=== PATIENT | male | born 1955 | race Caucasian/White ===

== ENCOUNTER 2018-08-14 00:44 | Inpatient (IN) ==
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
[2018-08-14] MEDS ORDERED: Post-op Orders (for Pharmacy) OTHER ONE (03:31)
[2018-08-14] MEDS ORDERED: Naloxone Inj 0.4 MG/ML Vial IV.PUSH PRN (03:31)
[2018-08-14] MEDS ORDERED: Morphine Inj 4 MG/ML Vial IV.PUSH PRN (03:31)
[2018-08-14] MEDS ORDERED: Sodium Chloride 0.9% 2 ML Flush PRN IV.FLUSH (04:09)
[2018-08-14] MEDS: Sod Chloride 0.9% Inj 1,000 ML IV.CONT SCH (05:18)
[2018-08-14] MEDS ORDERED: Dextrose 50% in Water 50 ML Vial IV.PUSH PRN (05:38)
[2018-08-14] MEDS ORDERED: Influenza (Quadrivalent) Vaccine 0.5 ML Syringe IM ONE (08:00)
[2018-08-14] MEDS ORDERED: Gabapentin 400 MG Capsule PO SCH (09:00)
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
[2018-08-14] MEDS: Famotidine 20 MG Tablet PO SCH ×2 (11:01→20:32)
[2018-08-14] MEDS: Metoclopramide 10 MG Tablet PO SCH ×3 (11:01→19:21)
[2018-08-14] MEDS: Lidocaine 5% Patch T-DERMAL SCH (11:01)
[2018-08-14] MEDS: Gemfibrozil 600 MG Tablet PO SCH ×2 (11:02→22:13)
[2018-08-14] MEDS: Lisinopril 20 MG Tablet PO SCH (11:03)
[2018-08-14] MEDS: Sodium Chloride 0.9% 2 ML Flush BID IV.FLUSH SCH ×2 (11:17→22:16)
[2018-08-14] MEDS: glipiZIDE 5 MG Tablet PO SCH ×2 (11:17→20:16)
[2018-08-14] MEDS: oxyCODONE/Acetaminophen 10/325 Tablet PO PRN ×2 (11:26→17:49)
[2018-08-14] MEDS: Insulin NovoLIN Regular Correctional Sugar Inj SQ SCH ×4 (11:39→20:32)
[2018-08-14 13:01] LABS: Baso % (Auto) 0.4 % (0.0-2.0); Eos % (Auto) 0.4 % (0.0-4.0); Hematocrit 37.3 % (39.0-51.0); Hemoglobin 12.4 gm/dL (13.0-17.0); Lymph # (Auto) 1.1 th/mm3 (1.0-4.8); Lymph % (Auto) 12.8 % (9.0-44.0); Mean Corpuscular HGB Conc 33.3 % (32.0-36.0); Mean Corpuscular Volume 92.9 fL (80.0-100.0); Mono # (Auto) 0.4 th/mm3 (0.0-0.9); Mono % (Auto) 5.2 % (0.0-8.0); Neut # (Auto) 6.9 th/mm3 (1.8-7.7); Neut % (Auto) 81.2 % (16.0-70.0); Platelet Count 187 th/mm3 (150-450); Red Blood Count 4.02 mil/mm3 (4.50-5.90); Red Cell Distribution Width 15.2 % (11.6-17.2); White Blood Count 8.5 th/mm3 (4.0-11.0)
[2018-08-14 13:22] LABS: Calcium 8.3 mg/dL (8.5-10.1); Carbon Dioxide 24.6 meq/L (21.0-32.0)
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
[2018-08-14] MEDS: Gabapentin 400 MG Capsule PO SCH (17:52)
--- NOTE | 2018-08-14 22:30 | ECG ---
Date Performed: 08/14/2018 Time Performed: 10:28:19 PTAGE: 63 years EKG: Sinus rhythm POSSIBLE INFERIOR MYOCARDIAL INFARCTION , PROBABLY OLD BORDERLINE ECG NO PREVIOUS TRACING DOCTOR: Madi White Interpretating Date/Time 08/14/2018 22:28:53
[2018-08-15] MEDS: Sod Chloride 0.9% Inj 1,000 ML IV.CONT SCH ×2 (00:17→13:50)
[2018-08-15] MEDS: oxyCODONE/Acetaminophen 10/325 Tablet PO PRN ×3 (04:52→22:49)
[2018-08-15 07:14] LABS: Baso % (Auto) 0.5 % (0.0-2.0); Eos # (Auto) 0.1 th/mm3 (0.0-0.4); Eos % (Auto) 1.7 % (0.0-4.0); Hemoglobin 12.4 gm/dL (13.0-17.0); Lymph % (Auto) 16.1 % (9.0-44.0); Mean Corpuscular HGB Conc 33.5 % (32.0-36.0); Mean Corpuscular Volume 92.7 fL (80.0-100.0); Mean Platelet Volume 7.9 fL (7.0-11.0); Mono # (Auto) 0.4 th/mm3 (0.0-0.9); Mono % (Auto) 6.9 % (0.0-8.0); Neut # (Auto) 4.5 th/mm3 (1.8-7.7); Neut % (Auto) 74.8 % (16.0-70.0); Platelet Count 168 th/mm3 (150-450); Red Blood Count 3.99 mil/mm3 (4.50-5.90); Red Cell Distribution Width 14.9 % (11.6-17.2)
[2018-08-15 07:42] LABS: Calcium 8.3 mg/dL (8.5-10.1); Carbon Dioxide 27.2 meq/L (21.0-32.0); Potassium 4.3 meq/L (3.5-5.1)
[2018-08-15] MEDS: Insulin NovoLIN Regular Correctional Sugar Inj SQ SCH ×4 (09:23→22:51)
[2018-08-15] MEDS: Lisinopril 20 MG Tablet PO SCH (09:24)
[2018-08-15] MEDS: Famotidine 20 MG Tablet PO SCH ×2 (09:25→22:50)
[2018-08-15] MEDS: Metoclopramide 10 MG Tablet PO SCH ×3 (09:25→17:12)
[2018-08-15] MEDS: Lidocaine 5% Patch T-DERMAL SCH (09:26)
[2018-08-15] MEDS: Gabapentin 400 MG Capsule PO SCH ×3 (09:26→17:12)
[2018-08-15] MEDS: glipiZIDE 5 MG Tablet PO SCH ×2 (09:26→22:51)
[2018-08-15] MEDS: Gemfibrozil 600 MG Tablet PO SCH ×2 (09:26→22:50)
[2018-08-15] MEDS: Sodium Chloride 0.9% 2 ML Flush BID IV.FLUSH SCH ×2 (09:26→22:51)
--- NOTE | 2018-08-15 11:36 | XR ---
EXAM DATE: 08/15/2018 11:04 AM EST AGE/SEX: 63 years / Male INDICATIONS: Cervical neck pain CLINICAL DATA: This is the patient's initial encounter. Patient reports that signs and symptoms have been present for 2 days and indicates a pain score of 2/10. MEDICAL/SURGICAL HISTORY: None. None. COMPARISON: No prior exams available for comparison. FINDINGS: Limited range of motion during flexion and extension are noted. Vertebral body alignment remains stable. There is no evidence of listhesis or instability. Moderate degenerative disc disease is again noted at C5-6 and C6-7. There is disc space narrowing wit h marginal spondylosis. CONCLUSION: Limited range of motion. No evidence of instability. Electronically signed by: Delfino Barr MD 08/15/2018 11:35 AM EST
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
[2018-08-15] MEDS: Senna/Docusate Sodium 8.6/50 MG Tablet PO SCH (22:49)
--- NOTE | 2018-08-16 07:43 | P.DCO ---
- Physical Therapy Order: Evaluate and treat, Improve ambulation, Strength and gait training - Occupational Therapy Order: Evaluate and treat, Improve ADL, Gross motor coordination - Home Health Nursing Order: Medical education, Signs/symptoms of disease process, Medication education-adverse effect, Nursing assessment with vital signs - Case Management Consult Yes - Certification I have seen patient Rad Larsen on 08/16/18. My clinical findings support the need for the requested home health care services because: Limited mobility due to disease progression, Patient has SOB, Deconditioned with increased weakness, Medication compliance is questionable, Limited ability to care for self, High risk of falls I certify that my clinical findings support that this patient is homebound because: Unsteady gait/balance, Unsafe to leave home unassisted, Non-ambulatory: confined to bed or chair, Unable to use public transportation
[2018-08-16] MEDS: Sod Chloride 0.9% Inj 1,000 ML IV.CONT SCH (08:06)
[2018-08-16] MEDS: Sodium Chloride 0.9% 2 ML Flush BID IV.FLUSH SCH ×2 (08:35→23:15)
[2018-08-16] MEDS: Senna/Docusate Sodium 8.6/50 MG Tablet PO SCH ×2 (08:35→23:12)
[2018-08-16] MEDS: Gabapentin 400 MG Capsule PO SCH ×3 (08:35→19:11)
[2018-08-16] MEDS: Lisinopril 20 MG Tablet PO SCH (08:35)
[2018-08-16] MEDS: glipiZIDE 5 MG Tablet PO SCH ×2 (08:36→23:12)
[2018-08-16] MEDS: Gemfibrozil 600 MG Tablet PO SCH ×2 (08:37→23:11)
[2018-08-16] MEDS: Famotidine 20 MG Tablet PO SCH ×2 (08:39→23:12)
[2018-08-16] MEDS: oxyCODONE/Acetaminophen 10/325 Tablet PO PRN ×3 (08:39→23:12)
[2018-08-16] MEDS: Metoclopramide 10 MG Tablet PO SCH ×3 (08:39→19:09)
[2018-08-16] MEDS: Lidocaine 5% Patch T-DERMAL SCH (08:40)
[2018-08-16] MEDS: Insulin NovoLIN Regular Correctional Sugar Inj SQ SCH ×4 (10:16→23:13)
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
--- NOTE | 2018-08-16 18:14 | MR ---
EXAM DATE: 08/16/2018 6:00 PM EST AGE/SEX: 63 years / Male INDICATIONS: . Neck pian radiating down left arm post trauma. CLINICAL DATA: This is the patient's subsequent encounter. Patient reports that signs and symptoms h ave been present for 3 days and indicates a pain score of 3/10. MEDICAL/SURGICAL HISTORY: Diabetes mellitus type II. Hypertension. [place] CABG. cardiac stents COMPARISON: [facility] [place], CT CERVICAL SPINE W/O CONTRAST, 08/14/2018. . TECHNIQUE: Multiplanar, multisequence MRI examination of the cervical spine was performed without co ntrast. FINDINGS: Cervical spine alignment is normal. Vertebral bodies have normal height. The known fractures of poste rior elements of C6 and the left lateral mass of C7 on not well demonstrated by MRI and appear to rem ain nondisplaced. No ligament rupture seen. Mild prevertebral fluid from C3 to C7; this measures appr oximately 3 mm in maximal thickness. No epidural hematoma or other fluid collections in the spinal ca nal. C2-C3: The disc is desiccated but otherwise normal. Very mild bilateral uncovertebral and facet oste oarthritis. No foraminal or spinal stenosis. C3-C4: The disc is desiccated but otherwise normal. Mild bilateral uncovertebral and facet osteoarth ritis. No foraminal or spinal stenosis. C4-C5: The disc is desiccated. No significant loss of height. Small posterior disc osteophyte comple x and mild bilateral uncovertebral and facet osteoarthritis. There is mild spinal stenosis without co rd ratio signal abnormality. There is mild bilateral foraminal stenosis. C5-C6: The disc is desiccated and has moderate loss of height. Moderate-sized, broad but mostly righ t paracentral disc osteophyte complex is present and there is mild to moderate bilateral uncovertebra l and facet osteoarthritis. There is moderate to severe spinal stenosis and short segment cord compre ssion. Just below the the disc osteophyte complex is focal increased T2 signal within the cord. There is moderate bilateral foraminal stenosis. C6-C7: The disc is desiccated and has moderate loss of height. Small to moderate, broad posterior di sc osteophyte complex present and there is moderate bilateral uncovertebral and facet osteoarthritis. There is [id number] spinal stenosis without cord compression or cord signal abnormality. There is moderate to severe bilateral foraminal stenosis. C7-T1: The disc is desiccated but otherwise within normal limits. Mild bilateral facet osteoarthriti s. No foraminal or spinal stenosis. CONCLUSION: 1. Nondisplaced fractures involving the posterior elements of C6 and the left lateral mass of C7. No subluxation. No ligamentous disruption demonstrated. There is no fracture-associated or spinal steno sis seen. 2. Focal cord signal abnormality at C6. This may be acute or contusion but chronic myelomalacia rela lidya to the spinal stenosis and cord compression at C5/C6 would be more likely. 3. Moderate to severe spinal stenosis with short segment cord compression and moderate bilateral for aminal stenosis at C5/C6. 4. Mild to moderate spinal stenosis without cord compression and moderate to severe bilateral forami nal stenosis at C6/C7. Electronically signed by: Xander Otoole MD 08/16/2018 6:13 PM EST
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
[2018-08-17] MEDS: oxyCODONE/Acetaminophen 10/325 Tablet PO PRN ×3 (05:45→23:07)
[2018-08-17] MEDS: Sod Chloride 0.9% Inj 1,000 ML IV.CONT SCH ×2 (08:38→17:33)
[2018-08-17] MEDS: Insulin NovoLIN Regular Correctional Sugar Inj SQ SCH ×4 (09:22→22:50)
[2018-08-17] MEDS: Gabapentin 400 MG Capsule PO SCH ×3 (09:23→17:35)
[2018-08-17] MEDS: Senna/Docusate Sodium 8.6/50 MG Tablet PO SCH ×2 (09:23→23:07)
[2018-08-17] MEDS: Gemfibrozil 600 MG Tablet PO SCH (09:23)
[2018-08-17] MEDS: glipiZIDE 5 MG Tablet PO SCH ×2 (09:24→23:08)
[2018-08-17] MEDS: Famotidine 20 MG Tablet PO SCH ×2 (09:24→23:08)
[2018-08-17] MEDS: Lisinopril 20 MG Tablet PO SCH (09:24)
[2018-08-17] MEDS: Metoclopramide 10 MG Tablet PO SCH ×3 (09:24→17:35)
[2018-08-17] MEDS: Sodium Chloride 0.9% 2 ML Flush BID IV.FLUSH SCH ×2 (09:27→23:08)
[2018-08-17] MEDS: Lidocaine 5% Patch T-DERMAL SCH (09:27)
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
[2018-08-18] MEDS: Gemfibrozil 600 MG Tablet PO SCH ×2 (07:50→09:29)
[2018-08-18] MEDS: Gabapentin 400 MG Capsule PO SCH ×2 (09:28→12:35)
[2018-08-18] MEDS: Senna/Docusate Sodium 8.6/50 MG Tablet PO SCH (09:28)
[2018-08-18] MEDS: Lisinopril 20 MG Tablet PO SCH (09:29)
[2018-08-18] MEDS: Famotidine 20 MG Tablet PO SCH (09:29)
[2018-08-18] MEDS: glipiZIDE 5 MG Tablet PO SCH (09:29)
[2018-08-18] MEDS: Lidocaine 5% Patch T-DERMAL SCH (09:30)
[2018-08-18] MEDS: Sodium Chloride 0.9% 2 ML Flush BID IV.FLUSH SCH (09:30)
[2018-08-18] MEDS: Metoclopramide 10 MG Tablet PO SCH ×2 (09:30→12:35)
[2018-08-18] MEDS: oxyCODONE/Acetaminophen 10/325 Tablet PO PRN (09:38)
[2018-08-18] MEDS: Sod Chloride 0.9% Inj 1,000 ML IV.CONT SCH (10:06)
[2018-08-18] MEDS: Insulin NovoLIN Regular Correctional Sugar Inj SQ SCH ×2 (10:07→12:37)
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
[2018-08-18 13:48] VITALS: BP 151/85; PULSE 76; RESP 22; TEMP 97.1; O2SAT 96
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
[2018-08-19] MEDS ORDERED: Thrombin Topical Soln 5,000 UNIT Vial TOPICAL ONE (07:37)
[2018-08-19] MEDS ORDERED: ceFAZolin 2 GM Premix Inj 0 GM/0 ML PIGGYBACK IV.SIG ONE (07:37)
[2018-08-19] MEDS ORDERED: Gelatin Size 100 Topical Foam ONE (07:37)
== END 2018-08-18 15:06 | disposition home health service (06) ==
LOC: NEPE 00:44 → NEDA 01:56 → N06 04:29
PROVIDERS: ADMIT Surgery; ATTEND Surgery

== ENCOUNTER 2018-09-02 09:54 | Observation (INO) ==
[~2018-09-02 09:54] MED LIST: Artificial Tears Opth Oint 3.5 GM Tube ONE; Gelatin Size 100 Topical Foam ONE; Thrombin Topical Soln 5,000 UNIT Vial TOPICAL ONE; ceFAZolin 1 GM Premix Inj 2 GM/100 ML FROZ.PIGGY IV.SIG ONE
[2018-09-02] MEDS ORDERED: Metoprolol Tartrate 25 MG Tablet PO ONE (10:29)
[2018-09-02] MEDS ORDERED: Chlorhexidine Gluconate 2% 1 Pack (2 Cloths) TOPICAL ONE (10:29)
[2018-09-02] MEDS ORDERED: Sod Chloride 0.9% Inj 1,000 ML IV.SIG SCH (11:00)
[2018-09-02] MEDS ORDERED: Sodium Chlor 0.9% Inj 500 ML IV.SIG SCH (11:00)
[2018-09-02] MEDS ORDERED: Vancomycin Inj 1,000 MG in Sodium Chlor 0.9% Inj 250 ML IV.SIG SCH (11:00)
--- NOTE | 2018-09-02 11:03 | XR ---
EXAM DATE: 09/02/2018 10:48 AM EST AGE/SEX: 63 years / Male INDICATIONS: Pre op cervical spine surgery. CLINICAL DATA: This is the patient's initial encounter. Patient reports that signs and symptoms have been present for 1 day and indicates a pain score of 0/10. MEDICAL/SURGICAL HISTORY: . heart attack . cabg. Coronary artery stent COMPARISON: . FINDINGS: A single AP view of the chest demonstrates the lungs to be symmetrically aerated without evidence of mass, infiltrate or effusion. The cardiomediastinal contours are unremarkable. Osseous structures a re intact. Sternotomy wires. CONCLUSION: No acute cardiopulmonary disease Electronically signed by: Xander Vidales MD 09/02/2018 11:01 AM EST
[2018-09-02] MEDS ORDERED: Insulin NovoLIN Regular Correctional Sugar Inj SQ ONE (11:09)
[2018-09-02 11:29] LABS: Activated Partial Thrombo Time 23.7 sec (23.4-31.7); INR 1.1 Ratio
[2018-09-02 11:39] LABS: Alanine Aminotransferase 24 U/L (12-78); Albumin 3.9 g/dL (3.4-5.0); Anion Gap 7 meq/L (5-15); Aspartate Aminotransferase 13 U/L (15-37); Blood Urea Nitrogen 28 mg/dL (7-18); Calcium 8.9 mg/dL (8.5-10.1); Carbon Dioxide 26.6 meq/L (21.0-32.0); Chloride 104 meq/L (98-107); Glomerular Filtration Rate 64 mL/min (>89); Glucose,Random 210 mg/dL (74-106); Potassium 4.1 meq/L (3.5-5.1); Sodium 138 meq/L (136-145)
[2018-09-02 11:42] LABS: Alkaline Phosphatase 86 U/L (45-117); Total Protein 7.7 g/dL (6.4-8.2)
[2018-09-02 11:52] LABS: Bilirubin,Urine Negative (Negative); Clarity,Urine Turbid (Clear); Color,Urine Yellow (Yellw/Straw); Glucose,Urine (UA) 150 mg/dL (Negative); Leukocyte Esterase,Urine Negative (Negative); Nitrite,Urine Negative (Negative); Specific Gravity,Urine 1.029 (1.002-1.035)
[2018-09-02] MEDS ORDERED: Morphine Sulfate Inj 2 MG/ML Vial IV.PUSH PRN (13:10)
[2018-09-02] MEDS ORDERED: Menthol 5.8 MG Lozenge BUCCAL PRN (13:10)
[2018-09-02] MEDS ORDERED: Bisacodyl 10 MG Supp RECTAL PRN (13:10)
[2018-09-02] MEDS ORDERED: oxyCODONE/Acetaminophen 10/325 Tablet PO PRN (13:13)
[2018-09-02] MEDS ORDERED: Gabapentin 400 MG Capsule PO PRN (13:13)
[2018-09-02] MEDS ORDERED: Dextrose 50% in Water 50 ML Vial IV.PUSH PRN (13:14)
[2018-09-02] MEDS ORDERED: fentaNYL Citrate Inj 250 MCG/5 ML Ampul ONE (13:19)
[2018-09-02] MEDS ORDERED: Artificial Tears Opth Oint 3.5 GM Tube ONE (13:19)
[2018-09-02] MEDS ORDERED: ceFAZolin 2 GM Premix Inj 2 GM/50 ML PIGGYBACK IV.SIG SCH (14:00)
[2018-09-02] MEDS ORDERED: Propofol Inj 500 MG/50 ML Vial ONE (15:05)
[2018-09-02] MEDS ORDERED: Sugammadex Inj 200 MG/2 ML Vial IV.PUSH ONE (16:24)
[2018-09-02] MEDS ORDERED: fentaNYL Citrate Inj 100 MCG/2 ML Ampul ONE (16:41)
[2018-09-02] MEDS ORDERED: HYDROmorphone PF Inj 2 MG/ML Vial ONE (16:41)
[2018-09-02] MEDS ORDERED: *morphine SULFATE 4 MG/ML PERIprocedure ONLY ONE ×2 (16:51→17:07)
--- NOTE | 2018-09-02 17:02 | XR ---
EXAM DATE: 09/02/2018 4:56 PM EST AGE/SEX: 63 years / Male INDICATIONS: Fusion C5 to C7 with screws and plate placement. CLINICAL DATA: This is the patient's initial encounter. Patient reports that signs and symptoms have been present for 1 day and indicates a pain score of Nonresponsive. MEDICAL/SURGICAL HISTORY: None. None. COMPARISON: [facility] [place], MR CERVICAL SPINE W/O CONTRAST, 08/16/2018. . FINDINGS: Postsurgical changes are identified in the lower cervical spine. Patient has undergone anterior fusio n from C5 through C7. There is an anterior fusion plate with fixation screws. Vertebral body cages ar e identified in C5-6 and C6-7 disc spaces. Alignment is well-maintained. CONCLUSION: Satisfactory postoperative appearance of the cervical spine following anterior cervical fusion from C 5 through C7. Electronically signed by: Delfino Barr MD 09/02/2018 5:01 PM EST
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
[2018-09-02] MEDS: Insulin NovoLOG Aspart Correctional Sugar Inj SQ SCH (18:36)
[2018-09-02] MEDS: Senna/Docusate Sodium 8.6/50 MG Tablet PO SCH (20:43)
[2018-09-02] MEDS ORDERED: INSULIN GLARGINE SQ SCH (21:00)
[2018-09-02] MEDS ORDERED: Insulin Detemir Inj 1,000 UNIT/10 ML Vial SQ SCH (21:00)
[2018-09-03] MEDS: Insulin NovoLOG Aspart Correctional Sugar Inj SQ SCH ×4 (01:33→12:13)
[2018-09-03] MEDS: ceFAZolin 2 GM Premix Inj 2 GM/50 ML PIGGYBACK IV.SIG SCH ×2 (02:06→10:18)
[2018-09-03] MEDS ORDERED: Levothyroxine 75 MCG Tablet PO SCH (06:00)
[2018-09-03 06:08] LABS: Baso % (Auto) 0.2 % (0.0-2.0); Hematocrit 35.6 % (39.0-51.0); Hemoglobin 12.1 gm/dL (13.0-17.0); Lymph # (Auto) 0.6 th/mm3 (1.0-4.8); Lymph % (Auto) 6.5 % (9.0-44.0); Mean Corpuscular Hemoglobin 31.3 pg (27.0-34.0); Mean Corpuscular Volume 91.9 fL (80.0-100.0); Mean Platelet Volume 7.7 fL (7.0-11.0); Mono # (Auto) 0.1 th/mm3 (0.0-0.9); Mono % (Auto) 1.6 % (0.0-8.0); Neut # (Auto) 8.1 th/mm3 (1.8-7.7); Neut % (Auto) 91.7 % (16.0-70.0); Platelet Count 215 th/mm3 (150-450); Red Blood Count 3.87 mil/mm3 (4.50-5.90); Red Cell Distribution Width 14.5 % (11.6-17.2); White Blood Count 8.9 th/mm3 (4.0-11.0)
[2018-09-03 06:38] LABS: Calcium 8.7 mg/dL (8.5-10.1); Carbon Dioxide 24.5 meq/L (21.0-32.0); Potassium 4.3 meq/L (3.5-5.1)
[2018-09-03] MEDS ORDERED: Pantoprazole Sodium 20 MG DR Tablet PO SCH (09:00)
--- NOTE | 2018-09-03 09:42 | P.PNNS ---
Subjective Interval history: Doing well after ACDF, eager to go home, worked with PT this morning, some minor swallowing (normal postop) Physical Exam Vital signs: Vital Signs 09/02/18 10:47 09/02/18 16:34 09/02/18 16:35 Temperature 98.3 F 97.4 F L Pulse Rate 78 79 Respiratory Rate 16 18 Blood Pressure 178/80 H 113/57 L Pulse Oximetry 99 100 100 09/02/18 16:45 09/02/18 17:00 09/02/18 17:15 Temperature Pulse Rate 78 76 74 Respiratory Rate 15 16 16 Blood Pressure 148/64 H 148/64 H 141/67 H Pulse Oximetry 97 99 97 09/02/18 17:30 09/02/18 17:45 09/02/18 18:35 Temperature 97.6 F 97.2 F L Pulse Rate 75 74 80 Respiratory Rate 16 16 18 Blood Pressure 140/66 142/65 H 162/72 H Pulse Oximetry 98 98 99 09/02/18 19:26 09/02/18 23:26 09/03/18 01:10 Temperature 97.2 F L 97.2 F L Pulse Rate 79 72 Respiratory Rate 18 17 20 Blood Pressure 149/77 H 161/81 H Pulse Oximetry 100 95 09/03/18 03:21 09/03/18 04:30 Temperature 97.1 F L Pulse Rate 69 Respiratory Rate 18 Blood Pressure 158/72 H Pulse Oximetry 96 95 Intake & Output 09/02/18 09/03/18 09/03/18 18:59 06:59 18:59 Intake Total 530 / 530 Balance 530 / 530 Weight 64.2 kg 64.2 kg Intake: IV 50 / 50 Ancef 2 GM Premix Inj 2 gm In 50 / 50 50 ml @ 100 mls/hr IV.SIG Q8H [facility] Rx#:[id number] Oral 480 / 480 Other: # Voids 5 # Bowel Movements 0 Weight On Admission 64.2 kg Narrative: Dressing c/d/i Exam per baseline ambulatory with full strength a&o x 3 - Urinary Catheter Management Indwelling Urethral Catheter Cath placed during this visit: yes Reason for continuing: Hourly intake/output Insertion date: 09/02/18 Insertion time: 14:00 Assessment and Plan - Plan D/c home F/u Dr. Manuel 1-2 weeks as previously scheduled
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
[2018-09-03] MEDS: Senna/Docusate Sodium 8.6/50 MG Tablet PO SCH ×2 (10:17→10:34)
--- NOTE | 2018-09-07 09:25 | P.OP ---
Preoperative Diagnosis: Cervical spinal stenosis with disk herniation Postoperative Diagnosis: Cervical spinal stenosis with disk herniation Date of procedure: 09/02/18 Procedure: C5-6, C6-7 anterior cervical discectomy, interbody arthodhesis using PEEK cage filled with autologous bone graft, Simplicity plate and screws. Anesthesia: BUTCH Surgeon: Godfrey Manuel MD Tar Chaser: Alethea Beal Pathology: none sent Operation and Findings: INDICATIONS FOR THE PROCEDURE Mr Larsen is a 63 year-old male who presented with intractable neck pain and clinical evidence of C6 and C7 upper extremity radiculopathy. He was found to have significant spondylosis with stenosis and disk protusions. He has failed maximum nonsurgical management including multiple modalities of conservative treatment. A surgical decompression and arthrodhesis were indicated. The [id number] details of the procedure, indications, alternatives, risks and potential complications were fully discussed with the patient. The patient fully understood. All The questions were answered. No guarantees were given. The patient voiced requesting the procedure and provided informed consents. The patient was offered the alternative of delaying the procedure and continuing with nonsurgical management. DETAILS OF THE SURGICAL PROCEDURE After the induction of general anesthesia, endotracheal intubation was performed. A López catheter, bilateral DARION hose, and sequential compression devices were placed and kept throughout the procedure. Placement of electrodes for neurophysiological monitoring of the somato sensorial evoked potentials. motor evoked potentials, and EMG as well as laryngeal nerve monitoring was achieved. The patient was positioned supine on a Seng table with the head over a gel doughnut. All pressure points were carefully padded with eggcrate mattress. The eyes were tapped shut after ointment was applied by the anesthesiologist to prevent corneal abrasion. A Henny hugger was placed over the exposed lower body to maintain control of the core body temperature. The electrophysiological team placed the needles and electrodes in their proper location and baseline SSEP's and motor evoked potentials were registered prior and after positioning and endotracheal intubation. The anterior cervical region was prepped and draped in the usual sterile fashion. A localizing x-ray was performed with a C-arm. The surgical procedure was performed in several steps as follow: SURGICAL APPROACH A skin incision was made along the inferior cervical crease with a #10 blade. The dissection was carried out through the platysma exposing the sternocleidomastoid muscle. The cervical spine was approached following the fascial layers of the neck just medial to the anterior border of the sternocleidomastoid and carotid sheath by a combination of sharp and dull dissection. The omohyoid muscle was identified and carefully dissected laterally and the deep cervical fascia was carefully opened. The longus colli muscles were retracted to each side of the midline. A marker was placed at the disc space C5-6 and a cross-table lateral x-ray performed with a C-arm. SURGICAL DECOMPRESSION In order to decompress the anterior surface of the spinal cord it was necessary to preform a microsurgical resection of the disk at C5-6 and C6-7. At this point in the procedure the operating microscope was draped in the usual sterile fashion and brought to the field. The rest of the surgical procedure was performed using microdissection technique with the exception of the closure. Under the operative microscopic, a self-retaining retractor was placed underneath the longus colli muscle. Anterior osteophite spurs werte carefully removed with the [place]. The annulus at C5-6 and C6-7 were incised with a #15 blade and microdiscectomy was then carefully carried out using angled curets and pituitary forceps. There were osteophitic/disk herniation complexes mass effect and compression of the dural sac and nerve roots. The posterior longitudinal ligament was then elevated with an angled curet and incised with a 15 bladed knife. A careful resection of the posterior longitudinal ligament was carried out using a thin footplate 2 mm Kerrison. A nerve hook was used to assess the epidural space behind the vertebral bodies C5, C6, and C7 in search for residual disk fragments. The margins of the posterior endplates at C5-6 and C6-7 were carefully drilled and undercut with a TPS drill under high magnification. The decompression was then carried out laterally, and a bilateral foraminotomy was performed with a 2mm thin foot Kerrison. Then the vertebral bodies above and below the disk space were undercut using a 2 mm thin foot Kerrison. The epidural space was the systematically assessed with a nerve hook in search for disk fragments. An excellent decompression was achieved in both, the dural sac and bilateral exiting nerve roots. The incision was then irrigated with a large amount of antibiotic solution INTERBODY ARTHRODHESIS In order to avoid collapse of the disk space which would result in bilateral foraminal stenosis, and to increase the chances of a successful fusion, it was necessary to place an interbody cage filled with autologous bone. At this point of the procedure, the superior and inferior endplates were then evenly decorticated with a TPS drill. The use of a drill in combination with a curette allowed me to systematically remove the cartilaginous endplates, exposing healthy bone for the interbody arthrodesis. Fourteen millimeters distraction pins were then placed at the vertebral bodies adjacent to the disk space, and gentle distraction was applied. The size of the interbody cage was then assessed using different size spacers, and a rasp was used to ensure no residual cartilage. A PEEK cage of the appropriate size was selected, and the interbody arthrodesis was then preformed by carefully impacting a PEEK cage filled with autologous bone graft to the disc spaces C5-6 and C6-7. An excellent position of the cage was achieved. This was was confirmed anatomically by feeling the space posterior to the implant and distance to the anterior surface of the dural sac. Radiological confirmation of the position was performed with a cross lateral xray performed with the C-arm. INTERNAL INSTRUMENTAL FIXATION Once that the interbody device was in an appropriate position, it was necessary to stabilize the spine with anterior instrumentation. Anterior instrumentation has demonstrated to increase the rate of fusion, accelerate the patient's recovery, and decrease the rate of failed interbody grafts. At this point of the procedure, the distance between the vertebral bodies was carefully measures, and a Simplicity plate was brought to the field and presented in front of the vertebral bodies C5, C6, and C7. Foil Spooler holes were then drilled using the TPS drill, and the plate was then secured to the spine using self-drilling, self-tapping screws. Initially, the inferior right screw was inserted, followed by placement of the contralateral upper screw. The remanding screws were sequentially placed in a contra-lateral fashion. A proper purchase was achieved with all screws and the position of the cage, plate and screws, and alignment of the spine was assessed anatomically by direct visualization, and radiologically by performing a cross lateral xray of the cervical spine with the C-arm. CLOSURE The incision was irrigated with several liters of antibiotic solution. Hemostasis was achieved with a bipolar. The screws were locked to prevent backing out. A 7 mm Seng-Archer drain was left in the prevertebral space and externalized through a separate stab incision. The incision was then closed in layers. 3-0 Vicryl with interrupted sutures was used to close the platysma and subcutaneous tissue. The skin was closed with 4-0 running subcuticular Vicryl and glue was applied to the skin. The drain was secured with a 3-0 nylon. At the end of the procedure the sponge, needle and instrument counts were all correct. The estimated blood loss was less than 80 cc. No blood transfusion was given. No intraoperative complications occurred. The patient received prophylactic antibiotics. The patient was then extubated and transferred to the recovery room in stable condition.
--- NOTE | 2018-09-13 14:53 | P.DS ---
Date of admission: 09/02/18 13:10 Primary care physician: Brenda Primary Care Physician Brief History from admission: Mr Larsen is a 63 year-old male who presented with intractable neck pain and clinical evidence of C6 and C7 upper extremity radiculopathy. He was found to have significant spondylosis with stenosis and disk protusions. He has failed maximum nonsurgical management including multiple modalities of conservative treatment. A surgical decompression and arthrodesis were indicated. DS: Medications - Discharge Medications Prescriptions: hydrocodone-acetaminophen 1 tab PO Q4H PRN #18 tab PRN Reason: Pain Scale 1 To 5 DS: Summary Hospital Course: Mr. Larsen underwent a C5-6, C6-7 anterior cervical discectomy, interbody arthrodesis using PEEK cage filled with autologous bone graft, Simplicity plate and screws for cervical spinal stenosis with disk herniation on 09/02/18. He was discharged in stable conditions. - Time Spent with Patient Total time spent providing and/or coordinating discharge services: Less than 30 minutes - Quality: VTE Deep Vein Thrombosis/Pulmonary Embolism Present on Admission: No Results Procedures completed during hospitalization: C5-6, C6-7 anterior cervical discectomy, interbody arthodhesis using PEEK cage filled with autologous bone graft, Simplicity plate and screws. - Impressions ITS Impressions Cervical Spine X-Ray 09/02/18 00:00 CONCLUSION: Satisfactory postoperative appearance of the cervical spine following anterior cervical fusion from C5 through C7. Chest X-Ray 09/02/18 00:00 CONCLUSION: No acute cardiopulmonary disease Discharge Plan - Discharge Disposition Patient Disposition: 01 Discharge Home - Discharge Condition Condition: Good - Discharge Order Discharge Orders: Discharge Order (Routine); Ordered 09/02/18 Ordered By: Gdofrey Manuel Hospitalist Clear for Discharge (Routine); Ordered 09/03/18 Ordered By: Kyra Corcoran - Discharge Details Discharge Comment: Patient may resume ASA and Plavix in 5 days 09/08/18 - Physicians Team Primary Care Provider: Primary Care Rhiannon,Brenda Attending Provider: Godfrey Manuel Other Providers: Zenobia Pearl MD - Rxs /Orders / Referrals /Forms Prescriptions: New hydrocodone-acetaminophen 10-325 mg Tablet 1 tab PO Q4H PRN (Reason: Pain Scale 1 To 5) Qty: 18 RF: 0 Continue atorvastatin 40 mg Tablet 40 mg PO DAILY gabapentin 800 mg Tablet 800 mg PO DAILY PRN (Reason: Pain) insulin glargine [Lantus Solostar U-100 Insulin] 100 unit/mL (3 mL) Insulin Pen 32 unit SUBCUT HS levothyroxine 75 mcg Tablet 75 mcg PO DAILY losartan 100 mg Tablet 100 mg PO DAILY metformin 1,000 mg Tablet 1,000 mg PO DAILY omeprazole 20 mg Tablet,Delayed Release (Dr/Ec) 20 mg PO DAILY oxycodone-acetaminophen 10-325 mg Tablet 1 tab PO Q6H PRN (Reason: Pain) Discontinued aspirin [Adult Low Dose Aspirin] 81 mg Tablet,Delayed Release (Dr/Ec) 81 mg PO DAILY Referrals: Primary Care Brenda Jurado [Primary Care Provider] - See Instructions - Discharge Instructions Patient Printed Instructions: Hydrocodone/Acetaminophen (By mouth), Constipation (DC), Anterior Cervical Discectomy (DC), Laminectomy (DC), Comal J Collar (DC) Additional Instructions: I have reviewed the patient's MRI of the lumbar spine. The MRI findings correlate with the patient's clinical symptoms. The patient has failed to improve with conservative treatment including physical therapy, exercises, antiinflammatories and muscle relaxants, as well as, epidural steroid injections performed by an interventional pain specialist. The patient understands that a surgical procedure should be considered as a last resort. Unfortunately, the patient's symptoms are getting worse and continue to affect activities of daily living. I discussed with the patient the alternative of continuing nonsurgical treatment with further pain management and physical therapy, analgesics, and antiinflammatories, versus consideration to a surgical decompression with a right L4-5 and possible L5-S1 hemilaminectomy, mesofacetectomy, foraminotomy with microsurgical resection of the disk. I have discussed the details of the surgical decompression including the step-by -step procedure, its indications, alternatives, risks, and potential complications. Risks and potential complications include, but are not limited to , infection, blood loss, CSF leak, partial or complete loss of sight in one or both eyes, paresis, paralysis, permanent pain, hoarseness or difficulty swallowing, loss of bowel or bladder function, complications from anesthesia, blood clot, stroke, myocardial infarction, or even . I advised Rad Larsen SR surgical procedures have risks, and before reaching a decision in regards to surgery, the patient should consider the alternatives, including the possibility of no treatment. I have counseled Rad Larsen SR on the proper body mechanics, importance of avoiding heavy lifting, repetitive bending, twisting, or any which might result in stress over the spine. The understands. All questions have been answered, no guaranties were given. The patient has an increased BMI for which the patient has been counseled today. The patient will follow-up with their family physician for weight management.KEEP HOH-J COLLAR ON AT ALL TIMES. IT SHOULD FIT SNUGLY BUT NOT TOO TIGHT. TAKE ALL PRESCRIPTIONS DIRECTED AND KEEP ALL FOLLOW UP APPOINTMENTS INDICATED. CONTACT PHYSICIAN FOR FEVER, HEADACHES, CONFUSION, INCREASED PAIN OR ANY OTHER CONCERNS OR PROBLEMS. - Post Discharge Care Plan Care Plan Goals: Your Health Problems: Goals to Promote Your Health: * To prevent worsening of your condition * To maintain your health at the optimal level Directions to Meet Your Goals: * Take your medications as prescribed * Follow your dietary instruction * Follow activity as directed * Keep your appointments as scheduled * Take your immunizations and boosters as scheduled * If your symptoms worsen call your PCP * If no PCP go to Urgent Care or Emergency Room Smoking is dangerous to your health. Avoid second hand smoke. You may reach the 24-hour crisis hotline for domestic abuse at .
== END 2018-09-03 13:20 | disposition home or self-care (01) ==
LOC: HSDI 09:54 → HSDC 09:54 → N06 17:57
PROVIDERS: ADMIT Neurological Surgery; ATTEND Neurological Surgery